=== PATIENT | female | born 1960 | race Two or more races ===

== ENCOUNTER → 2017-03-27 | Emergency (ER) | payer OTHER ==
[~2017-03-27] VITALS: Ht 154.9 cm; Wt 63.5 kg
[~2017-03-27] MED LIST: ANTIVERT25 M1 PO; ATENOLOL25 MG; ENTOCORT EC3 MG; HUMIRA SQ; IMODIUM2 MG PO; LEVSIN/SL0.125 MG; LEVSIN/SL0.125 MG PO; LIPO-FLAVONOID1 EACH PO; MICRO-K8 MEQ; PENTASA500 MG; PRILOSEC10 MG PO; PRILOSEC20 MG PO; PROTONIX40 MG PO; ZANTAC150 M3; ZOFRAN4 MG PO; ZYRTEC10 MG PO
== END | disposition home or self-care (01) ==
LOC: ER 10:57
DX: K52.9 Noninfective gastroenteritis and colitis, unspecified (principal)

== ENCOUNTER 2018-07-28 14:06 | Emergency (ER) | payer OTHER ==
[~2018-07-28] VITALS: Ht 154.9 cm; Wt 65.8 kg
[2018-07-28] MEDS ORDERED: PROTONIX40 MG (14:16)
== END 2018-07-28 18:42 | disposition home or self-care (01) ==
LOC: ER 14:06
DX: K52.89 Other specified noninfective gastroenteritis and colitis (principal); K50.90 Crohn's disease, unspecified, without complications

== ENCOUNTER 2018-07-30 09:10 | Emergency (ER) | payer OTHER ==
[~2018-07-30] VITALS: Ht 154.9 cm; Wt 65.8 kg
[~2018-07-30 09:10] MED LIST changes: +PROTONIX40 MG
== END 2018-07-30 13:38 | disposition home or self-care (01) ==
LOC: ER 09:10
DX: K52.89 Other specified noninfective gastroenteritis and colitis (principal); E86.0 Dehydration; R10.11 Right upper quadrant pain

== ENCOUNTER 2019-09-08 23:26 | Emergency (ER) | payer OTHER ==
[~2019-09-08] VITALS: Ht 154.9 cm; Wt 65.8 kg
[2019-09-08] MEDS ORDERED: PAXIL20 MG (23:35)
[2019-09-09] MEDS ORDERED: LEVSIN/SL0.125 MG SL (12:27)
[2019-09-09] MEDS ORDERED: CARAFATE1 GM PO (12:27)
[2019-09-09] MEDS ORDERED: PEPCID AC20 MG PO (12:27)
== END 2019-09-09 12:45 | disposition home or self-care (01) ==
LOC: ER 23:26
DX: K29.60 Other gastritis without bleeding (principal)

== ENCOUNTER 2020-01-19 15:01 | Emergency (ER) | payer OTHER ==
[~2020-01-19] VITALS: Ht 154.9 cm; Wt 70.3 kg
[~2020-01-19 15:01] MED LIST changes: +CARAFATE1 GM PO; +LEVSIN/SL0.125 MG SL; +PAXIL20 MG; +PEPCID AC20 MG PO
[2020-01-19] MEDS ORDERED: ACIDO FOLICO (15:31)
[2020-01-19] MEDS ORDERED: PROBIOTICOS (15:31)
[2020-01-19] MEDS ORDERED: VITAMINA C (15:32)
[2020-01-19] MEDS ORDERED: ZYRTEC (15:33)
== END 2020-01-19 20:33 | disposition home or self-care (01) ==
LOC: ER 15:01
DX: R00.2 Palpitations (principal); K50.90 Crohn's disease, unspecified, without complications; Z03.818 Encounter for observation for suspected exposure to other biological agents ruled out; R19.7 Diarrhea, unspecified

== ENCOUNTER 2020-01-23 12:48 | Emergency (ER) | payer OTHER ==
[~2020-01-23] VITALS: Ht 154.9 cm; Wt 69.9 kg
[~2020-01-23 12:48] MED LIST changes: +ACIDO FOLICO; +PROBIOTICOS; +VITAMINA C; +ZYRTEC
[2020-01-23] MEDS ORDERED: HUMIRA PEN40 MG/0.2 (13:01)
[2020-01-23] MEDS ORDERED: PEPCID AC20 MG (13:01)
[2020-01-23] MEDS ORDERED: FOLIC ACID0.8 M1 (13:01)
== END 2020-01-23 19:47 | disposition home or self-care (01) ==
LOC: ER 12:48 → CPU-OBS 12:50 → ER 12:50
DX: M94.0 Chondrocostal junction syndrome [Tietze] (principal); Z03.818 Encounter for observation for suspected exposure to other biological agents ruled out; R07.89 Other chest pain

== ENCOUNTER 2022-06-14 14:08 | Emergency (ER) | payer OTHER ==
[~2022-06-14] VITALS: Ht 154.9 cm; Wt 69.9 kg
[~2022-06-14 14:08] MED LIST changes: +FOLIC ACID0.8 M1; +HUMIRA PEN40 MG/0.2; +PEPCID AC20 MG
== END 2022-06-15 05:13 | disposition home or self-care (01) ==
LOC: ER 14:08
DX: K50.90 Crohn's disease, unspecified, without complications (principal); Z88.0 Allergy status to penicillin; E11.9 Type 2 diabetes mellitus without complications

== ENCOUNTER → 2023-09-15 | Outpatient (CLI) | payer OTHER | END | disposition home or self-care (01) | LOC: NUCLEAR 07:00 | PROVIDERS: ATTEND Internal Medicine Cardiovascular Disease | DX: I20.9 Angina pectoris, unspecified (principal) | CPT/HCPCS: 78452; 93017; A9500 ==

== ENCOUNTER 2024-01-28 08:58 | Emergency (ER) | payer OTHER ==
[~2024-01-28] VITALS: Ht 154.9 cm; Wt 69.4 kg
[2024-01-28] MEDS ORDERED: EZALLOR SPRINKLE5 MG PO (09:05)
[2024-01-28] MEDS ORDERED: KAPSPARGO SPRIN25 MG PO (09:05)
[2024-01-28] MEDS ORDERED: PAXIL20 MG PO (09:06)
[2024-01-28] MEDS ORDERED: MEPERIDINE HCL/PF 50 MG/ML VIAL IM STA (10:13)
[2024-01-28] MEDS ORDERED: PROMETHAZINE HCL 50 MG/ML AMPUL IV STA (10:14)
[2024-01-28] MEDS ORDERED: RINGERS SOLUTION,LACTATED 1,000 ML IV STA (10:15)
[2024-01-28 11:17] LABS: HEMATOCRIT 41.3 % (36.0-45.00); HEMOGLOBIN 13.9 g/dL (12.0-15.00); MEAN CELL VOLUME 87.8 fL (80.00-100.00); MEAN CORPUSCULAR HEMOGLOBIN 29.5 pg (27.00-32.0); MEAN CORPUSCULAR HGB CONC 33.6 g/dl (32.0-36.0); PLATELET COUNT 250 K/uL (150-450); RED CELL DISTRIBUTION WIDTH 14.5 % (11.5-14.5)
[2024-01-28 11:41] LABS: BILIRUBIN TOTAL 0.56 mg/dL (0.3-1.2); BILIRUBIN,CONJUGATED 0.14 mg/dL (0.0-0.2); BILIRUBIN,UNCONJUGATED 0.42 mg/dL (0.0-0.6); CALCIUM 9.3 mg/dL (8.5-10.1); CREATININE SERUM 0.82 mg/dL (0.55-1.02); GFR 70.18; POTASSIUM 4.17 mEq/L (3.5-5.1); TOTAL PROTEIN 7.7 gm/dL (6.4-8.2)
[2024-01-28 14:23] LABS: PH,URINE 6.5 (5.0-8.0); URINE APPEARANCE Clear; URINE BILIRRUBIN Negative (NEGATIVE); URINE BLOOD Negative; URINE COLOR Yellow; URINE GLUCOSE Negative (NEGATIVE); URINE KETONE Negative (NEGATIVE); URINE LEUKOCYTE Negative; URINE NITRATE Negative; URINE PROTEIN Negative (NEGATIVE); URINE UROBILINOGEN 0.2 E.U./dl
[2024-01-28 14:26] LABS: URINE BACTERIA 11.3 uL (0.0-1933); URINE WBC 2.7 uL (0.0-23.2)
[2024-01-28 14:32] LABS: URINE RBC 0.7 uL (0.0-20.8)
== END 2024-01-28 15:27 | disposition home or self-care (01) ==
LOC: ER 08:59
PROVIDERS: General Practice
DX: R10.9 Unspecified abdominal pain (principal); K50.90 Crohn's disease, unspecified, without complications; Z88.0 Allergy status to penicillin; Z88.6 Allergy status to analgesic agent; K57.30 Diverticulosis of large intestine without perforation or abscess without bleeding
CPT/HCPCS: 36415; 74176; 96365; 96372; 99284; J2250; J3490

== ENCOUNTER 2024-08-21 05:09 | Emergency (ER) | payer OTHER ==
[~2024-08-21] VITALS: Ht 154.9 cm; Wt 68.9 kg
[~2024-08-21 05:09] MED LIST changes: +EZALLOR SPRINKLE5 MG PO; +KAPSPARGO SPRIN25 MG PO; +PAXIL20 MG PO
[2024-08-21] MEDS ORDERED: LACTOBACILLUS ACIDOPHILUS 1 CAP CAP PO STA (06:32)
[2024-08-21] MEDS ORDERED: FAMOTIDINE/PF 20 MG/2 ML VIAL IV PUSH STA (06:33)
[2024-08-21] MEDS ORDERED: ONDANSETRON HCL 2 MG/ML VIAL IV STA (06:33)
[2024-08-21] MEDS ORDERED: HYOSCYAMINE SULFATE 0.125 MG TAB.SUBL PO ONE (06:45)
[2024-08-21] MEDS ORDERED: 0.9 % SODIUM CHLORIDE 1,000 ML IV ONE (06:45)
[2024-08-21] MEDS ORDERED: ONDANSETRON HCL 2 MG/ML VIAL ONE (07:17)
[2024-08-21] MEDS ORDERED: HYOSCYAMINE SULFATE 0.125 MG TAB.SUBL ONE (07:17)
[2024-08-21] MEDS ORDERED: FAMOTIDINE/PF 20 MG/2 ML VIAL ONE (07:18)
[2024-08-21] MEDS ORDERED: LACTOBACILLUS ACIDOPHILUS 1 CAP CAP PO ONE (07:18)
[2024-08-21 09:28] LABS: BASO % 0.2 % (0.1-1.2); EOS # 0.07 (0.04-0.54); EOS % 1.2 % (0.7-7.0); HEMOGLOBIN 13.2 g/dL (11.2-15.7); LYMPH # 2.66 (1.18-3.74); LYMPH % 45.5 % (19.3-53.1); MEAN CORPUSCULAR HEMOGLOBIN 28.8 pg (25.6-32.2); MONO # 0.56 (0.24-0.82); MONO % 9.6 % (4.7-12.5); NEUT # 2.53 (1.56-6.13); NEUT % 43.2 % (34.0-71.1); PLATELET COUNT 219 K/uL (163-369); RED BLOOD COUNT 4.58 M/uL (3.93-5.22); RED CELL DISTRIBUTION WIDTH 13.7 % (11.6-14.4)
[2024-08-21 09:38] LABS: PH,URINE 5.5 (5.0-8.0); URINE APPEARANCE Clear; URINE BILIRRUBIN Negative (NEGATIVE); URINE BLOOD Trace; URINE COLOR Yellow; URINE GLUCOSE Negative (NEGATIVE); URINE KETONE 15 (NEGATIVE); URINE LEUKOCYTE Negative; URINE NITRATE Negative; URINE PROTEIN Negative (NEGATIVE); URINE UROBILINOGEN 0.2 E.U./dl
[2024-08-21 09:39] LABS: URINE BACTERIA 40.3 uL (0.0-1933); URINE EPITHELIAL CELLS 15.3 uL (0.0-38.8); URINE WBC 5.3 uL (0.0-23.2)
[2024-08-21 09:56] LABS: URINE CAST 0.44 uL (0.0-1.40)
[2024-08-21 12:07] LABS: ALBUMIN 3.7 gm/dL (3.4-5.0); BILIRUBIN TOTAL 0.35 mg/dL (0.3-1.2); CALCIUM 8.5 mg/dL (8.5-10.1); CREATININE SERUM 0.6 mg/dL (0.55-1.02); GFR 100.33; GLOBULINA 3.5 G/DL (2.4-3.5); POTASSIUM 3.93 mEq/L (3.5-5.1); TOTAL PROTEIN 7.2 gm/dL (6.4-8.2)
== END 2024-08-21 12:14 | disposition home or self-care (01) ==
LOC: ER 05:18
PROVIDERS: General Practice
DX: K59.1 Functional diarrhea (principal); Z88.0 Allergy status to penicillin; Z88.5 Allergy status to narcotic agent
CPT/HCPCS: 36415; 96365; 96366; 99282; J2405; J3490; J7030

== ENCOUNTER 2024-08-23 07:09 | Outpatient (CLI) | payer OTHER | END 2024-08-23 07:10 | disposition home or self-care (01) | LOC: NUCLEAR 07:09 | PROVIDERS: ATTEND Specialist | DX: M35.3 Polymyalgia rheumatica (principal) | CPT/HCPCS: 78315; A9503 ==